=== PATIENT | female | born 1970 | race Caucasian/White ===

== ENCOUNTER 2017-09-08 16:04 | Inpatient (IN) | payer OTHER ==
[2017-09-08 16:43] LABS: ADD MAN DIFF? NO
[2017-09-08 16:53] LABS: BASO % 1 % (0-3); EOS % 0 % (0-3); HEMATOCRIT 40.8 % (36.0-47.0); HEMOGLOBIN 13.3 g/dL (12.0-15.5); LYMPH % 35 % (24-48); MEAN CORPUSCULAR HEMOGLOBIN 28 pg (25-35); MEAN CORPUSCULAR HGB CONC 33 g/dL (31-37); MEAN CORPUSCULAR VOLUME 86 fL (79-100); MONO # 0.8 x10^3/uL (0.0-1.1); MONO % 13 % (0-9); NEUT % 51 % (31-73); PLATELET COUNT 252 x10^3/uL (140-400); RED BLOOD COUNT 4.72 x10^6/uL (3.50-5.40); RED CELL DISTRIBUTION WIDTH 14.6 % (11.5-14.5); WHITE BLOOD COUNT 5.9 x10^3/uL (4.0-11.0)
[2017-09-08] MEDS: ALBUTEROL SULFATE 2.5 MG/3 ML NEBU. INH (16:53)
[2017-09-08] MEDS: IPRATRPIUM/ALBUTEROL 0.5/2.5MG 3 ML NEBU. NEB ×2 (16:54→20:03)
[2017-09-08] MEDS: ACETAMINOPHEN 500 MG TABLET PO (16:54)
[2017-09-08] MEDS: IV NORMAL SALINE 1000ML BAG 1,000 ML IV (16:55)
[2017-09-08] MEDS: methylPREDNISolone SOD SUCC PF 125 MG/2 ML VIAL. IV (16:56)
[2017-09-08 17:14] LABS: ANION GAP 12 (6-14); BLOOD UREA NITROGEN 12 mg/dL (7-20); BUN/CREATININE RATIO 17 (6-20); CALCIUM 8.4 mg/dL (8.5-10.1); CARBON DIOXIDE 29 mmol/L (21-32); CHLORIDE 99 mmol/L (98-107); CREATININE 0.7 mg/dL (0.6-1.0); GFR 90.1; GLUCOSE 132 mg/dL (70-99); SODIUM 140 mmol/L (136-145)
[2017-09-08 17:19] LABS: ALBUMIN 3.4 g/dL (3.4-5.0); ALBUMIN/GLOBULIN RATIO 0.9 (1.0-1.7); ALK PHOS 61 U/L (46-116); ALT (SGPT) 35 U/L (14-59); AST (SGOT) 31 U/L (15-37); TOTAL BILIRUBIN 0.5 mg/dL (0.2-1.0); TOTAL PROTEIN 7.1 g/dL (6.4-8.2)
[2017-09-08 17:20] LABS: TROPONINI < 0.017 ng/mL (0.000-0.055)
[2017-09-08 17:24] LABS: NT-PRO BNP 63 pg/mL (0-124)
[2017-09-08 17:32] LABS: LACTIC ACID 1.3 mmol/L (0.4-2.0)
[2017-09-08 17:48] LABS: INFLUENZA A PATIENT NEGATIVE (NEGATIVE); INFLUENZA B PATIENT NEGATIVE (NEGATIVE); OBC FLU VALID
[2017-09-08] MEDS ORDERED: ACETAMINOPHEN 325 MG TABLET. PO (19:00)
[2017-09-08] MEDS ORDERED: ONDANSETRON PF 4 MG/2 ML VIAL. IV (19:00)
[2017-09-08] MEDS: AZITHRMYCN 500MG IVPB FOR OMNI 250 ML IV (19:44)
[2017-09-08 20:41] LABS: BILIRUBIN,URINE SMALL (NEG); CLARITY,URINE CLOUDY; COLOR,URINE AMBER; GLUCOSE,URINE NEGATIVE (NEG); NITRITE,URINE NEGATIVE (NEG); PROTEIN,URINE 100 mg/dL (NEG-TRACE); UROBILINOGEN,URINE 0.2 mg/dL (0.2 mg/dL)
[2017-09-08 20:51] LABS: BACTERIA,URINE 0 /HPF (0-FEW); HYALINE CASTS, URINE MODERATE /HPF; RBC,URINE 0 /HPF (0-2); SQUAMOUS EPITHELIAL CELL,UR MOD /LPF
[2017-09-08] MEDS: BUDESONIDE 0.5 MG/2 ML NEBU. NEB (22:00)
[2017-09-08] MEDS ORDERED: cefTRIAXone IV Push 1 GM VIAL. IVP (22:00)
[2017-09-08] MEDS ORDERED: ALBUTEROL SULFATE 2.5 MG/3 ML NEBU. NEB (22:00)
[2017-09-09] MEDS ORDERED: PNEUMOCOCCAL VAX SCREEN BY RX. MC (02:15)
[2017-09-09] MEDS ORDERED: INFLUENZA VAX SCREEN BY RX. MC (02:15)
[2017-09-09 05:36] LABS: ADD MAN DIFF? NO
[2017-09-09 05:49] LABS: BASO % 0 % (0-3); EOS % 0 % (0-3); HEMATOCRIT 40.3 % (36.0-47.0); HEMOGLOBIN 13.1 g/dL (12.0-15.5); LYMPH # 1.4 x10^3/uL (1.0-4.8); LYMPH % 25 % (24-48); MEAN CORPUSCULAR HEMOGLOBIN 28 pg (25-35); MEAN CORPUSCULAR HGB CONC 33 g/dL (31-37); MEAN CORPUSCULAR VOLUME 87 fL (79-100); MONO # 0.6 x10^3/uL (0.0-1.1); MONO % 10 % (0-9); NEUT # 3.7 x10^3uL (1.8-7.7); NEUT % 65 % (31-73); PLATELET COUNT 239 x10^3/uL (140-400); RED CELL DISTRIBUTION WIDTH 14.8 % (11.5-14.5); WHITE BLOOD COUNT 5.7 x10^3/uL (4.0-11.0)
[2017-09-09 06:14] LABS: ANION GAP 10 (6-14); BLOOD UREA NITROGEN 13 mg/dL (7-20); CARBON DIOXIDE 29 mmol/L (21-32); CHLORIDE 103 mmol/L (98-107); CREATININE 0.7 mg/dL (0.6-1.0); GFR 90.1; GLUCOSE 232 mg/dL (70-99); POTASSIUM 4.6 mmol/L (3.5-5.1); SODIUM 142 mmol/L (136-145)
[2017-09-09] MEDS: LEVOTHYROXINE 25 MCG TABLET. PO (06:35)
[2017-09-09] MEDS: IPRATRPIUM/ALBUTEROL 0.5/2.5MG 3 ML NEBU. NEB ×3 (07:27→15:27)
[2017-09-09] MEDS: BUDESONIDE 0.5 MG/2 ML NEBU. NEB ×2 (07:27→20:50)
[2017-09-09] MEDS: LACTOBACILLUS RHAMNOSUS GG 1 CAPSULE. PO ×2 (10:26→20:30)
[2017-09-09] MEDS: ASPIRIN ENTERIC COATED 81 MG TABLET.DR. PO (10:26)
[2017-09-09] MEDS: AZITHROMYCIN 250 MG TABLET. PO (10:26)
[2017-09-09] MEDS: metFORMIN 500 MG TABLET PO ×2 (10:26→17:03)
[2017-09-09] MEDS: methylPREDNISolone SOD SUCC PF 125 MG/2 ML VIAL. IV (12:27)
[2017-09-09] MEDS: FLU VACC QS2017-18 (36MOS+)/PF 0.5 ML SYRINGE. VAX IM (13:06)
[2017-09-09] MEDS: PNEUMOC CONJ VACC 23-VALENT 0.5 ML VIAL. VAX IM (13:08)
[2017-09-09] MEDS: cefTRIAXone IV Push 1 GM VIAL. IVP (17:03)
[2017-09-10] MEDS: LEVOTHYROXINE 25 MCG TABLET. PO (06:09)
[2017-09-10] MEDS: BUDESONIDE 0.5 MG/2 ML NEBU. NEB (07:13)
[2017-09-10] MEDS: predniSONE 20 MG TABLET PO (09:12)
[2017-09-10] MEDS: AZITHROMYCIN 250 MG TABLET. PO (09:12)
[2017-09-10] MEDS: LACTOBACILLUS RHAMNOSUS GG 1 CAPSULE. PO (09:12)
[2017-09-10] MEDS: metFORMIN 500 MG TABLET PO (09:12)
[2017-09-10] MEDS: ASPIRIN ENTERIC COATED 81 MG TABLET.DR. PO (09:12)
[2017-09-10] MEDS ORDERED: DEXTROSE 50% 25 GM / 50ML DISP.SYRIN. IV (14:00)
== END 2017-09-10 16:59 | disposition home or self-care (01) | DRG 193 ==
LOC: ER 16:04 → 6 SOUTH 18:12
DX: J18.9 Pneumonia, unspecified organism (principal); J96.01 Acute respiratory failure with hypoxia; Z68.41 Body mass index [BMI] 40.0-44.9, adult; A08.4 Viral intestinal infection, unspecified; E66.01 Morbid (severe) obesity due to excess calories; E03.9 Hypothyroidism, unspecified; I10 Essential (primary) hypertension; J40 Bronchitis, not specified as acute or chronic; Z91.040 Latex allergy status; Z91.048 Other nonmedicinal substance allergy status; Z23 Encounter for immunization
CPT/HCPCS: 36415; 71045; 71250; 80048; 80053; 81001; 83605; 83880; 84484; 85025; 87040; 87804; 87804-59; 90686; 90732; 93005; 94618; 94640; 94760; J0456; J0690; J0696; J2930; J7030; J7512; J7613; J7620; J7626; Q0144